=== PATIENT | male | born 1960 | race African-American/Black ===

== ENCOUNTER 2022-07-24 10:01 | Inpatient (IN) | payer MEDICAID, OTHER ==
[~2022-07-24] VITALS: Ht 170.2 cm; Wt 66.0 kg
[~2022-07-24 10:01] MED LIST: QUET300T5 PO
[2022-07-24] MEDS ORDERED: ASPIRIN 81 MG CHEWABLE TABLET PO ONE (10:30)
[2022-07-24] MEDS ORDERED: ALBUTEROL SULFATE HFA 90 MCG/PUFF 8 GM INHALER IH ONE (11:00)
[2022-07-24 11:03] LABS: BASOPHILS % (AUTO) 0.7 % (0.0-2.0); EOSINOPHILS % (AUTO) 0.2 % (1.0-6.0); HEMOGLOBIN 12.4 g/dL (13.5-17.5); LYMPHOCYTES % (AUTO) 26.5 % (22.0-44.0); MEAN CORPUSCULAR HEMOGLOBIN 26.8 pg (26.0-34.0); MEAN CORPUSCULAR HGB CONC 30.9 G/dL (31.0-37.0); MEAN CORPUSCULAR VOLUME 87 fL (80-100); MONOCYTES # (AUTO) 0.9 K/uL (0.1-1.0); MONOCYTES % (AUTO) 11.3 % (2.0-9.0); NEUTROPHILS # (AUTO) 4.7 K/uL (1.8-7.7); NEUTROPHILS % (AUTO) 61.3 % (40.0-70.0); PLATELET COUNT (AUTO) 241 K/uL (150-450); RED BLOOD CELL COUNT(AUTO) 4.62 MIL/uL (4.50-5.90); RED CELL DISTRIBUTION WIDTH 17.9 % (11.5-14.5)
[2022-07-24 11:15] LABS: ANION GAP 9 mmol/L (8-16); CALCIUM, TOTAL 6.3 mg/dL (8.8-10.5); CARBON DIOXIDE 22 mmol/L (22-29); CHLORIDE 113 mmol/L (98-107); CREATININE 0.77 mg/dL (0.60-1.30); GLUCOSE,RANDOM 66 mg/dL (70-110); POTASSIUM 3.4 mmol/L (3.5-5.1); SODIUM SERUM 144 mmol/L (136-145); UREA NITROGEN, BLOOD 21 mg/dL (7-18)
[2022-07-24 11:16] LABS: GLOMERULAR FILTR. RATE CALC > 60 mL/min (>60)
[2022-07-24 11:21] LABS: ALANINE AMINOTRANSFERASE 159 U/L (12-78); ALBUMIN 1.9 g/dL (3.4-5.0); ALKALINE PHOSPHATASE 220 U/L (46-116); ASPARTATE AMINOTRANSFERASE 133 U/L (15-37); BILIRUBIN,TOTAL 1.1 mg/dL (0.1-1.0); CREATINE KINASE, TOTAL ONLY 57 U/L (39-308); TOTAL PROTEIN, SERUM 5.4 g/dL (6.4-8.2)
[2022-07-24 11:35] LABS: B-TYPE NATRIURETIC PEPTIDE 3040 pg/mL (0-100)
[2022-07-24 11:40] LABS: COVID AG,FIA SOURCE NASAL SWAB
[2022-07-24] MEDS ORDERED: NICO-803 TD (11:40)
[2022-07-24] MEDS ORDERED: APIX5TAB PO (11:40)
[2022-07-24] MEDS ORDERED: SPIR-37 PO (11:40)
[2022-07-24] MEDS ORDERED: ATOR40TA71 PO (11:40)
[2022-07-24] MEDS ORDERED: SACU1TAB PO (11:40)
[2022-07-24] MEDS ORDERED: DAPA5TAB PO (11:40)
[2022-07-24] MEDS ORDERED: METO-408 PO (11:40)
[2022-07-24] MEDS ORDERED: PANT40TA54 PO (11:40)
[2022-07-24] MEDS ORDERED: FURO80TA3 PO (11:40)
[2022-07-24] MEDS ORDERED: SODIUM CHLORIDE 0.9% 100 ML ONE (11:42)
[2022-07-24] MEDS ORDERED: IOHEXOL 350 MG/ML 100 ML VIAL ONE (11:42)
[2022-07-24] MEDS ORDERED: KETOROLAC TROMETHAMINE 30 MG/ML VIAL IVP ONE (11:45)
[2022-07-24 11:56] LABS: APPEARANCE,URINE CLEAR (CLEAR); BILIRUBIN,URINE NEGATIVE (NEGATIVE); GLUCOSE, URINE (UA) >=1000 mg/dL (NEGATIVE); KETONES,URINE NEGATIVE (NEGATIVE); LEUKOCYTE ESTERASE ,URINE NEGATIVE (NEGATIVE); NITRATE,URINE NEGATIVE (NEGATIVE); OCCULT BLOOD,URINE NEGATIVE (NEGATIVE); PROTEIN,URINE 300-600,SEE CONFIRM mg/dL (NEGATIVE); SPECIFIC GRAVITIY, URINE 1.029 (1.003-1.030); UROBILINOGEN,URINE <=1.0 mg/dL (<=1.0)
[2022-07-24 12:01] LABS: BACTERIA,URINE None Seen /HPF (None Seen); RBC,URINE None Seen /HPF (0-2); SULFOSALICYLIC ACID,URINE 3+ (Negative); WBC,URINE None Seen /HPF (0-5)
[2022-07-24 12:02] LABS: AMPHET/METH SCREEN,URINE NEGATIVE (NEGATIVE); BARBITURATE SCREEN, URINE NEGATIVE (NEGATIVE); BENZODIAZEPINES SCREEN,URINE NEGATIVE (NEGATIVE); CANNABINOID SCREEN,URINE POSITIVE (NEGATIVE); COCAINE SCREEN,URINE NEGATIVE (NEGATIVE); METHADONE SCREEN, URINE NEGATIVE (NEGATIVE); OPIATE SCREEN,URINE NEGATIVE (NEGATIVE); PHENCYCLIDINE SCREEN,URINE NEGATIVE (NEGATIVE)
[2022-07-24] MEDS ORDERED: FUROSEMIDE 40 MG/4 ML VIAL IVP ONE (12:45)
[2022-07-24] MEDS ORDERED: ONDANSETRON HCL 4 MG/2 ML VIAL IVP ONE (13:15)
[2022-07-24] MEDS ORDERED: MORPHINE SULFATE 4 MG/ML SYRINGE IVP ONE (13:15)
[2022-07-24] MEDS ORDERED: ACETAMINOPHEN 325 MG TABLET PO PRN (13:45)
[2022-07-24] MEDS ORDERED: ONDANSETRON HCL 4 MG/2 ML VIAL IVP PRN (13:45)
[2022-07-24] MEDS ORDERED: POTASSIUM CHL 10 MEQ/WATER 50 ML IV PRN (14:00)
[2022-07-24] MEDS ORDERED: POTASSIUM CHLORIDE 20 MEQ ER TABLET PO PRN (14:00)
[2022-07-24] MEDS ORDERED: CefTRIAXone 1 GM/DEXTROSE 50 ML IV ONE (14:15)
[2022-07-24] MEDS ORDERED: AZITHROMYCIN 500 MG/NS 250 ML IV ONE (14:15)
[2022-07-24] MEDS: APIXABAN 5 MG TABLET PO SCH (20:56)
[2022-07-24] MEDS: METOPROLOL TARTRATE 25 MG TABLET PO SCH (20:56)
[2022-07-24] MEDS: DOCUSATE SODIUM 100 MG CAPSULE PO SCH (20:56)
[2022-07-24] MEDS ORDERED: INFLUENZA VIRUS VACCINE QVS 2022-23 (6MO+)/PF 60 MCG/0.5 ML SYRINGE IM. ONE (22:30)
[2022-07-24] MEDS ORDERED: PNEUMOCOCCAL VACCINE POLYVALENT 0.5 ML VIAL [PPSV23] IM. ONE (22:30)
[2022-07-25] VITALS: BP 125/73
[2022-07-25 04:00] VITALS: BP 100/77
[2022-07-25 06:29] LABS: BILIRUBIN,TOTAL 2.6 mg/dL (0.1-1.0); CALCIUM, TOTAL 9.5 mg/dL (8.8-10.5); CREATININE 1.54 mg/dL (0.60-1.30); TOTAL PROTEIN, SERUM 8.8 g/dL (6.4-8.2)
[2022-07-25 06:55] LABS: POTASSIUM 6.4 mmol/L (3.5-5.1)
[2022-07-25] MEDS ORDERED: DEXTROSE 50%-WATER 25 GM/50 ML SYRINGE IVP ONE (07:15)
[2022-07-25] MEDS ORDERED: SODIUM POLYSTYRENE SULFONATE 15 GM/60 ML SUSPENSION BOTTLE PO ONE (08:00)
[2022-07-25 08:38] LABS: GLUCOMETER DEV NAME(LOC) 5N.1C; GLUCOSE,POINT OF CARE 72 MG/DL (70-110)
[2022-07-25] MEDS: FAMOTIDINE 20 MG TABLET PO SCH (08:56)
[2022-07-25] MEDS: METOPROLOL TARTRATE 25 MG TABLET PO SCH (08:56)
[2022-07-25] MEDS: FUROSEMIDE 20 MG/2 ML VIAL IVP SCH (08:56)
[2022-07-25] MEDS: APIXABAN 5 MG TABLET PO SCH ×2 (08:56→20:37)
[2022-07-25] MEDS: DOCUSATE SODIUM 100 MG CAPSULE PO SCH ×2 (09:03→20:37)
[2022-07-25 11:43] LABS: INR 2.3 (0.9-1.1)
[2022-07-25 15:47] VITALS: BP 112/79
[2022-07-25 20:00] VITALS: BP 120/90
[2022-07-25 20:38] LABS: GLUCOMETER DEV NAME(LOC) 5S.1B; GLUCOSE,POINT OF CARE < 10 MG/DL (70-110)
[2022-07-25 20:38] LABS: GLUCOMETER DEV NAME(LOC) 5S.1B; GLUCOSE,POINT OF CARE 281 MG/DL (70-110)
[2022-07-26] VITALS (7 sets, daily range): BP systolic 111–137; BP diastolic 61–89
[2022-07-26] MEDS ORDERED: HALOPERIDOL LACTATE 5 MG/ML VIAL IM ONE (00:15)
[2022-07-26 06:25] LABS: BASOPHILS % (AUTO) 0.2 % (0.0-2.0); EOSINOPHILS % (AUTO) 0 % (1.0-6.0); HEMATOCRIT 44.2 % (41-53); HEMOGLOBIN 13.4 g/dL (13.5-17.5); LYMPHOCYTES # (AUTO) 1.6 K/uL (1.0-4.8); LYMPHOCYTES % (AUTO) 10.9 % (22.0-44.0); MEAN CORPUSCULAR HEMOGLOBIN 26.5 pg (26.0-34.0); MEAN CORPUSCULAR HGB CONC 30.3 G/dL (31.0-37.0); MEAN CORPUSCULAR VOLUME 87 fL (80-100); MONOCYTES # (AUTO) 2.1 K/uL (0.1-1.0); MONOCYTES % (AUTO) 14.6 % (2.0-9.0); NEUTROPHILS # (AUTO) 10.9 K/uL (1.8-7.7); NEUTROPHILS % (AUTO) 74.3 % (40.0-70.0); PLATELET COUNT (AUTO) 216 K/uL (150-450); RED BLOOD CELL COUNT(AUTO) 5.07 MIL/uL (4.50-5.90); RED CELL DISTRIBUTION WIDTH 17.8 % (11.5-14.5)
[2022-07-26 06:44] LABS: ALBUMIN 2.5 g/dL (3.4-5.0); BILIRUBIN,TOTAL 2.6 mg/dL (0.1-1.0); CALCIUM, TOTAL 8.8 mg/dL (8.8-10.5); CREATININE 1.46 mg/dL (0.60-1.30); POTASSIUM 5.9 mmol/L (3.5-5.1); TOTAL PROTEIN, SERUM 7.6 g/dL (6.4-8.2)
[2022-07-26] MEDS: FAMOTIDINE 20 MG TABLET PO SCH (08:57)
[2022-07-26] MEDS: DOCUSATE SODIUM 100 MG CAPSULE PO SCH ×2 (08:57→20:42)
[2022-07-26] MEDS: METOPROLOL SUCCINATE 25 MG ER TABLET PO SCH (08:57)
[2022-07-26] MEDS: FUROSEMIDE 20 MG/2 ML VIAL IVP SCH (08:57)
[2022-07-26] MEDS ORDERED: PERFLUTREN PROTEIN-A MICROSPHERES 0.22 MG/ML 3 ML VIAL IVP ONE (11:30)
[2022-07-26] MEDS: SODIUM ZIRCONIUM CYCLOSILICATE 5 GM POWDER PACKET PO SCH (14:40)
[2022-07-26] MEDS: FUROSEMIDE 40 MG/4 ML VIAL IVP SCH (20:42)
[2022-07-26 20:54] LABS: CREATININE,URINE RANDOM 115.1 mg/dL (30.0-125.0)
[2022-07-26] MEDS: ALBUTEROL SULFATE 2.5 MG/0.5 ML NEB SOLUTION NEB PRN (20:56)
[2022-07-26] MEDS ORDERED: FUROSEMIDE 20 MG/2 ML VIAL IVP SCH (21:00)
[2022-07-27] VITALS: BP 135/89
[2022-07-27 04:44] VITALS: BP 134/76
[2022-07-27 06:11] LABS: BASOPHILS % (AUTO) 0.4 % (0.0-2.0); EOSINOPHILS % (AUTO) 0.1 % (1.0-6.0); HEMATOCRIT 41.6 % (41-53); HEMOGLOBIN 13.3 g/dL (13.5-17.5); LYMPHOCYTES # (AUTO) 1.4 K/uL (1.0-4.8); LYMPHOCYTES % (AUTO) 13.6 % (22.0-44.0); MEAN CORPUSCULAR HEMOGLOBIN 27.3 pg (26.0-34.0); MEAN CORPUSCULAR VOLUME 86 fL (80-100); MONOCYTES % (AUTO) 10.3 % (2.0-9.0); NEUTROPHILS # (AUTO) 7.7 K/uL (1.8-7.7); NEUTROPHILS % (AUTO) 75.6 % (40.0-70.0); PLATELET COUNT (AUTO) 228 K/uL (150-450); RED BLOOD CELL COUNT(AUTO) 4.87 MIL/uL (4.50-5.90); RED CELL DISTRIBUTION WIDTH 17.1 % (11.5-14.5)
[2022-07-27 06:33] LABS: ANION GAP 4 mmol/L (8-16); BILIRUBIN,TOTAL 3.1 mg/dL (0.1-1.0); CALCIUM, TOTAL 7.9 mg/dL (8.8-10.5); CARBON DIOXIDE 31 mmol/L (22-29); CHLORIDE 99 mmol/L (98-107); CREATININE 1.18 mg/dL (0.60-1.30); GLUCOSE,RANDOM 146 mg/dL (70-110); SODIUM SERUM 134 mmol/L (136-145); THYROID STIMULATING HORMONE 2.81 uIU/mL (0.36-3.74); UREA NITROGEN, BLOOD 41 mg/dL (7-18)
[2022-07-27 06:45] LABS: B-TYPE NATRIURETIC PEPTIDE 3200 pg/mL (0-100)
[2022-07-27 06:48] LABS: GLOMERULAR FILTR. RATE CALC > 60 mL/min (>60)
[2022-07-27 07:08] LABS: GLUCOMETER DEV NAME(LOC) 5S.2B; GLUCOSE,POINT OF CARE 106 MG/DL (70-110)
[2022-07-27 07:19] LABS: INR 2.2 (0.9-1.1); PROTHROMBIN TIME 22.6 SEC (9.4-11.6)
[2022-07-27 07:43] VITALS: BP 125/79
[2022-07-27] MEDS: METOPROLOL SUCCINATE 25 MG ER TABLET PO SCH (08:11)
[2022-07-27] MEDS: DOCUSATE SODIUM 100 MG CAPSULE PO SCH ×2 (08:11→21:00)
[2022-07-27] MEDS: FAMOTIDINE 20 MG TABLET PO SCH (08:12)
[2022-07-27] MEDS: SODIUM ZIRCONIUM CYCLOSILICATE 5 GM POWDER PACKET PO SCH (08:12)
[2022-07-27] MEDS: FUROSEMIDE 40 MG/4 ML VIAL IVP SCH ×2 (08:12→21:09)
[2022-07-27 08:43] LABS: ALANINE AMINOTRANSFERASE 1459 U/L (12-78); ALBUMIN 2.1 g/dL (3.4-5.0); ALKALINE PHOSPHATASE 269 U/L (46-116); ASPARTATE AMINOTRANSFERASE 1540 U/L (15-37); TOTAL PROTEIN, SERUM 6.5 g/dL (6.4-8.2)
[2022-07-27] MEDS: LACTULOSE 20 GM/30 ML SOLUTION UDCUP PO SCH ×3 (09:31→21:09)
[2022-07-27] MEDS: CANAGLIFLOZIN 100 MG TABLET PO SCH (09:31)
[2022-07-27 11:51] VITALS: BP 121/93
[2022-07-27] MEDS: ALBUTEROL SULFATE 2.5 MG/0.5 ML NEB SOLUTION NEB PRN (14:11)
[2022-07-27 15:23] VITALS: BP 119/88
[2022-07-27 18:08] LABS: GLUCOMETER DEV NAME(LOC) 5N.1C; GLUCOSE,POINT OF CARE 125 MG/DL (70-110)
[2022-07-27 19:47] VITALS: BP 137/91
[2022-07-27] MEDS: APIXABAN 5 MG TABLET PO SCH (21:09)
[2022-07-28 00:06] VITALS: BP 124/85
[2022-07-28 04:17] LABS: GLUCOMETER DEV NAME(LOC) 5S.2B; GLUCOSE,POINT OF CARE 175 MG/DL (70-110)
[2022-07-28 04:44] VITALS: BP 135/88
[2022-07-28 05:48] LABS: BASOPHILS % (AUTO) 0.6 % (0.0-2.0); EOSINOPHILS % (AUTO) 0.5 % (1.0-6.0); HEMATOCRIT 42.3 % (41-53); HEMOGLOBIN 13.6 g/dL (13.5-17.5); LYMPHOCYTES # (AUTO) 1.3 K/uL (1.0-4.8); LYMPHOCYTES % (AUTO) 13.2 % (22.0-44.0); MEAN CORPUSCULAR HEMOGLOBIN 27.5 pg (26.0-34.0); MEAN CORPUSCULAR HGB CONC 32.1 G/dL (31.0-37.0); MEAN CORPUSCULAR VOLUME 85 fL (80-100); MONOCYTES % (AUTO) 9.8 % (2.0-9.0); NEUTROPHILS # (AUTO) 7.6 K/uL (1.8-7.7); NEUTROPHILS % (AUTO) 75.9 % (40.0-70.0); PLATELET COUNT (AUTO) 238 K/uL (150-450); RED BLOOD CELL COUNT(AUTO) 4.95 MIL/uL (4.50-5.90); RED CELL DISTRIBUTION WIDTH 17.2 % (11.5-14.5)
[2022-07-28 06:06] LABS: ALBUMIN 2.2 g/dL (3.4-5.0); ALKALINE PHOSPHATASE 300 U/L (46-116); ANION GAP 5 mmol/L (8-16); ASPARTATE AMINOTRANSFERASE 826 U/L (15-37); CALCIUM, TOTAL 8.6 mg/dL (8.8-10.5); CARBON DIOXIDE 31 mmol/L (22-29); CHLORIDE 103 mmol/L (98-107); CREATININE 1.07 mg/dL (0.60-1.30); GLUCOSE,RANDOM 98 mg/dL (70-110); SODIUM SERUM 139 mmol/L (136-145); TOTAL PROTEIN, SERUM 7.1 g/dL (6.4-8.2); UREA NITROGEN, BLOOD 29 mg/dL (7-18)
[2022-07-28 06:07] LABS: ALANINE AMINOTRANSFERASE 1113 U/L (12-78); GLOMERULAR FILTR. RATE CALC > 60 mL/min (>60)
[2022-07-28 07:03] VITALS: BP 123/87
[2022-07-28] MEDS: CANAGLIFLOZIN 100 MG TABLET PO SCH (07:05)
[2022-07-28 08:06] LABS: HEPATITIS C AB (EIA) 0.1 s/co ratio (0.0-0.9)
[2022-07-28] MEDS: METOPROLOL SUCCINATE 25 MG ER TABLET PO SCH (08:06)
[2022-07-28] MEDS: APIXABAN 5 MG TABLET PO SCH ×2 (08:06→21:20)
[2022-07-28] MEDS: DOCUSATE SODIUM 100 MG CAPSULE PO SCH ×2 (08:06→21:20)
[2022-07-28] MEDS: FAMOTIDINE 20 MG TABLET PO SCH (08:06)
[2022-07-28] MEDS: LACTULOSE 20 GM/30 ML SOLUTION UDCUP PO SCH ×3 (08:07→21:24)
[2022-07-28] MEDS: FUROSEMIDE 40 MG/4 ML VIAL IVP SCH ×2 (08:07→21:24)
[2022-07-28 11:03] VITALS: BP 130/93
[2022-07-28 11:34] LABS: GLUCOMETER DEV NAME(LOC) 5S.1B; GLUCOSE,POINT OF CARE 135 MG/DL (70-110)
[2022-07-28 12:06] LABS: ALBUMIN URINE (ELP) 56.7 %
[2022-07-28] MEDS: SACUBITRIL/VALSARTAN 24-26 MG TABLET PO SCH ×2 (12:40→21:20)
[2022-07-28 15:54] VITALS: BP 122/95
[2022-07-28 20:00] VITALS: BP 120/89
[2022-07-28] MEDS: ALBUTEROL SULFATE 2.5 MG/0.5 ML NEB SOLUTION NEB PRN (21:09)
[2022-07-28] MEDS ORDERED: ZOLPIDEM TARTRATE 5 MG TABLET PO ONE (21:15)
[2022-07-29] VITALS: BP 131/92
[2022-07-29 03:57] LABS: GLUCOMETER DEV NAME(LOC) 5S.2B; GLUCOSE,POINT OF CARE 201 MG/DL (70-110)
[2022-07-29 04:00] VITALS: BP 134/84
[2022-07-29] MEDS: CANAGLIFLOZIN 100 MG TABLET PO SCH (06:00)
[2022-07-29 06:50] LABS: BASOPHILS % (AUTO) 0.6 % (0.0-2.0); EOSINOPHILS % (AUTO) 0.9 % (1.0-6.0); HEMATOCRIT 45.5 % (41-53); HEMOGLOBIN 14.1 g/dL (13.5-17.5); LYMPHOCYTES # (AUTO) 1.6 K/uL (1.0-4.8); LYMPHOCYTES % (AUTO) 14.4 % (22.0-44.0); MEAN CORPUSCULAR HEMOGLOBIN 26.9 pg (26.0-34.0); MEAN CORPUSCULAR HGB CONC 31.1 G/dL (31.0-37.0); MEAN CORPUSCULAR VOLUME 87 fL (80-100); MONOCYTES # (AUTO) 1.2 K/uL (0.1-1.0); MONOCYTES % (AUTO) 11.1 % (2.0-9.0); NEUTROPHILS # (AUTO) 8.2 K/uL (1.8-7.7); PLATELET COUNT (AUTO) 248 K/uL (150-450); RED BLOOD CELL COUNT(AUTO) 5.25 MIL/uL (4.50-5.90); RED CELL DISTRIBUTION WIDTH 17.3 % (11.5-14.5)
[2022-07-29 07:04] LABS: ALANINE AMINOTRANSFERASE 943 U/L (12-78); ALBUMIN 2.4 g/dL (3.4-5.0); ALKALINE PHOSPHATASE 294 U/L (46-116); ANION GAP 4 mmol/L (8-16); ASPARTATE AMINOTRANSFERASE 566 U/L (15-37); BILIRUBIN,TOTAL 1.5 mg/dL (0.1-1.0); CALCIUM, TOTAL 8.9 mg/dL (8.8-10.5); CARBON DIOXIDE 33 mmol/L (22-29); CHLORIDE 102 mmol/L (98-107); CREATININE 1.16 mg/dL (0.60-1.30); GLUCOSE,RANDOM 83 mg/dL (70-110); SODIUM SERUM 139 mmol/L (136-145); TOTAL PROTEIN, SERUM 8.2 g/dL (6.4-8.2); UREA NITROGEN, BLOOD 29 mg/dL (7-18)
[2022-07-29 07:09] LABS: GLOMERULAR FILTR. RATE CALC > 60 mL/min (>60)
[2022-07-29 07:56] VITALS: BP 128/93
[2022-07-29] MEDS: METOPROLOL SUCCINATE 25 MG ER TABLET PO SCH (09:16)
[2022-07-29] MEDS: DOCUSATE SODIUM 100 MG CAPSULE PO SCH (09:16)
[2022-07-29] MEDS: LACTULOSE 20 GM/30 ML SOLUTION UDCUP PO SCH (09:16)
[2022-07-29] MEDS: APIXABAN 5 MG TABLET PO SCH (09:16)
[2022-07-29] MEDS: SACUBITRIL/VALSARTAN 24-26 MG TABLET PO SCH (09:16)
[2022-07-29] MEDS: FAMOTIDINE 20 MG TABLET PO SCH (09:16)
[2022-07-29] MEDS: FUROSEMIDE 40 MG/4 ML VIAL IVP SCH (09:17)
[2022-07-29 09:30] LABS: ALBUMIN 2.4 g/dL (3.4-5.0); BILIRUBIN,DIRECT 0.6 mg/dL (0.00-0.20); BILIRUBIN,TOTAL 1.4 mg/dL (0.1-1.0); TOTAL PROTEIN, SERUM 7.8 g/dL (6.4-8.2)
[2022-07-29] MEDS ORDERED: SACU1TAB PO (11:39)
[2022-07-29] MEDS ORDERED: APIX5TAB PO (11:39)
[2022-07-29] MEDS ORDERED: METO25XL PO (11:39)
[2022-07-29] MEDS ORDERED: CANA100T PO (11:39)
[2022-07-29] MEDS ORDERED: LACT10SO10 PO (11:39)
[2022-07-29] MEDS ORDERED: FURO40 PO (11:39)
== END 2022-07-29 16:00 | disposition home or self-care (01) | DRG 194 ==
LOC: EMS 10:02 → AHU 13:46 → 5S 21:03
PROVIDERS: ADMIT Internal Medicine; ATTEND Internal Medicine
DX: I13.0 Hypertensive heart and chronic kidney disease with heart failure and stage 1 through stage 4 chronic kidney disease, or unspecified chronic kidney disease (principal); J96.01 Acute respiratory failure with hypoxia; R65.11 Systemic inflammatory response syndrome (SIRS) of non-infectious origin with acute organ dysfunction; G93.40 Encephalopathy, unspecified; K76.6 Portal hypertension; I50.23 Acute on chronic systolic (congestive) heart failure; N17.9 Acute kidney failure, unspecified; D68.9 Coagulation defect, unspecified; E87.1 Hypo-osmolality and hyponatremia; F20.9 Schizophrenia, unspecified; I48.0 Paroxysmal atrial fibrillation; J44.9 Chronic obstructive pulmonary disease, unspecified; N18.9 Chronic kidney disease, unspecified; Z20.822 Contact with and (suspected) exposure to COVID-19; F17.210 Nicotine dependence, cigarettes, uncomplicated; F31.9 Bipolar disorder, unspecified; E87.5 Hyperkalemia; I27.20 Pulmonary hypertension, unspecified; I08.1 Rheumatic disorders of both mitral and tricuspid valves; R18.8 Other ascites; K76.1 Chronic passive congestion of liver; Z86.73 Personal history of transient ischemic attack (TIA), and cerebral infarction without residual deficits; Z79.899 Other long term (current) drug therapy; Z79.01 Long term (current) use of anticoagulants; I25.2 Old myocardial infarction
CPT/HCPCS: 71045; 71275; 74176; 76700; 80048; 80053; 80074; 80076; 80307; 81001; 81002; 82043; 82140; 82247; 82248; 82550; 82570; 82607; 82962; 83036; 83880; 84132; 84156; 84166; 84300; 84443; 84484; 85025; 85379; 85610; 87040; 93005; 93306; 94640; 99291; C8924; J0456; J1630; J1885; J1940; J2270; J2405; J3535; J7050; Q9967; 36415-L1; 36415-TC; J7613